=== PATIENT | male | born 2000 | race Two or more races ===

== ENCOUNTER 2022-11-12 20:49 | Emergency (ER) | payer SELFPAY ==
[2022-11-12] MEDS ORDERED: Ibuprofen 200 MG TAB ONE (23:53)
== END 2022-11-13 00:31 | disposition home or self-care (01) ==
LOC: ERS 20:49
DX: S92.152A Displaced avulsion fracture (chip fracture) of left talus, initial encounter for closed fracture (principal); X58.XXXA Exposure to other specified factors, initial encounter; Y93.67 Activity, basketball